=== PATIENT | female | born 1990 | race African-American/Black ===

== ENCOUNTER 2018-01-05 09:03 | Outpatient (CLI) | payer BC ==
--- NOTE | 2018-01-05 11:41 | ULT ---
FOCUSED ULTRASOUND OF THE RIGHT NECK: 01/05/2018 HISTORY: Palpable mass on the right side of the neck. Swelling. COMPARISON: None. TECHNIQUE: Multiplanar katz-scale sonographic imaging of the right neck in the area of interest provided. FINDINGS: No mass lesion or fluid collection is seen. IMPRESSION: Unremarkable focused ultrasound of the neck on the right. Given the history of a palpable mass, a CT examination of the neck with IV contrast is advised. POS: [facility]
== END 2018-01-05 09:04 | disposition home or self-care (01) ==
LOC: MADULT 09:03
PROVIDERS: ATTEND Family Medicine
DX: R22.1 Localized swelling, mass and lump, neck (principal)
CPT/HCPCS: 76536

== ENCOUNTER 2020-12-18 09:53 | Outpatient (CLI) | payer BC | END 2020-12-18 09:54 | disposition home or self-care (01) | LOC: MADRAD 09:53 | PROVIDERS: ATTEND Family Medicine | DX: R10.2 Pelvic and perineal pain (principal) | CPT/HCPCS: 76856 ==

== ENCOUNTER 2021-09-14 10:48 | Emergency (ER) | payer BC ==
[2021-09-14] MEDS ORDERED: Ibuprofen 800 MG TAB ONE (11:41)
[2021-09-14] MEDS ORDERED: Sodium Chloride 0.9% 1,000 ML ONE (11:41)
[2021-09-14] MEDS ORDERED: Acetaminophen 500 MG TAB ONE (11:41)
[2021-09-14 11:43] LABS: #Basophils 0.1 thou/uL (0.0-0.2); #Lymphocytes 0.4 thou/uL (1.20-3.40); #Monocytes 0.4 thou/uL (0.11-0.59); #Neutrophils 2.1 thou/uL (1.40-6.50); %Basophils 2.4 % (0.0-1.0); %Eosinophils 0.3 % (0.0-10.0); %Lymphocytes 13.7 % (21.0-51.0); %Monocytes 12.3 % (0.0-10.0); %Neutrophils 71.3 % (42.0-75.0); Mean Corpuscular HGB CONC 32.2 g/dL (32.0-36.0); Mean Corpuscular Hemoglobin 27.8 pg (27.0-31.0); Mean Corpuscular Volume 86.1 fL (78.0-98.0); Mean Platelet Volume 6.4 fL (7.4-10.4); Platelet Count 196 thou/uL (130-400); RBC Distribution Width 12.7 % (11.5-14.5); Red Blood Cell (RBC) Count 3.98 mill/uL (4.20-5.40); White Blood Cell (WBC) Count 2.9 thou/uL (4.8-10.8)
[2021-09-14 12:01] LABS: ALT (SGPT) 35 U/L (8-55); AST (SGOT) 33 U/L (5-34); Alkaline Phosphatase 91 U/L (40-110); Anion Gap 10 mmol/L (10-20); BUN (Urea Nitrogen) 10 mg/dL (7.0-18.7); Bilirubin, Total 0.2 mg/dL (0.2-1.2); Calc. Creatinine Clearance 0 mL/min (70-130); Calcium 9.5 mg/dL (7.8-10.44); Carbon Dioxide 25 mmol/L (22-29); Chloride 105 mmol/L (98-107); Globulin 3.3 g/dL (2.4-3.5); Glucose 97 mg/dL (70-105); Potassium 3.5 mmol/L (3.5-5.1); Protein, Total 7.3 g/dL (6.0-8.3); Sodium 136 mmol/L (136-145)
[2021-09-14 12:45] LABS: BHCG - Serum Negative (NEGATIVE); Pregs Control Background? CLEAR/WHITE (CLR/WHITE); Pregs Control Bar Appear? YES (CONTROL BAR)
[2021-09-14 14:36] LABS: Bilirubin Negative (Negative); Blood, Urine Trace (Negative); Glucose, Urine (Dipstick) Negative (Negative); Ketone, Urine 15 mg/dL (Negative); Leukocyte Negative (Negative); Nitrite Negative (Negative); Protein, Urine (Dipstick) 30 mg/dL (Neg-Trace); Specific Gravity, Urine 1.025 (1.005-1.030); Urobilinogen 0.2 mg/dL (Less than 2); pH, Urine 6.5 (5.0-9.0)
[2021-09-14 14:37] LABS: Clarity Hazy (Clear)
[2021-09-14 14:43] LABS: Bacteria/HPF 1+ HPF (None Seen); RBC/HPF 0-3 HPF (0-3); Squamous Epithelial 0-3 HPF (0-3); WBC/HPF 0-3 HPF (0-3)
[2021-09-14 16:42] LABS: #Lymphocytes 0.6 thou/uL (1.20-3.40); #Monocytes 0.4 thou/uL (0.11-0.59); #Neutrophils 1.7 thou/uL (1.40-6.50); %Basophils 1.2 % (0.0-1.0); %Eosinophils 0.2 % (0.0-10.0); %Neutrophils 61.7 % (42.0-75.0); Hemoglobin 10.5 g/dL (12.0-16.0); Mean Corpuscular HGB CONC 31.8 g/dL (32.0-36.0); Mean Corpuscular Hemoglobin 27.9 pg (27.0-31.0); Mean Corpuscular Volume 87.6 fL (78.0-98.0); Platelet Count 190 thou/uL (130-400); RBC Distribution Width 12.8 % (11.5-14.5); Red Blood Cell (RBC) Count 3.77 mill/uL (4.20-5.40); White Blood Cell (WBC) Count 2.7 thou/uL (4.8-10.8)
[2021-09-15 17:28] LABS: SARS-CoV-2 PCR by NAA DETECTED (NotDetected)
== END 2021-09-14 17:40 | disposition home or self-care (01) ==
LOC: MADERS 10:48
DX: U07.1 COVID-19 (principal); E86.0 Dehydration; D72.810 Lymphocytopenia
CPT/HCPCS: 36415; 80053; 81003; 81015; 83605; 84703; 85025; 87040; 87086; 87804; 99283; J7050; U0003; U0005

== ENCOUNTER 2024-07-29 15:14 | Emergency (ER) | payer BC ==
[2024-07-29] MEDS ORDERED: Acetaminophen 500 MG TAB ONE (16:23)
[2024-07-29 16:47] LABS: #Basophils 0.1 thou/uL (0.0-0.2); #Lymphocytes 2.6 thou/uL (1.20-3.40); #Monocytes 0.5 thou/uL (0.11-0.59); %Basophils 1.1 % (0.0-1.0); %Eosinophils 0.2 % (0.0-10.0); %Lymphocytes 42.2 % (21.0-51.0); %Monocytes 7.7 % (0.0-10.0); %Neutrophils 48.8 % (42.0-75.0); Hematocrit 38.7 % (36.0-47.0); Hemoglobin 12.3 g/dL (12.0-16.0); Mean Corpuscular HGB CONC 31.8 g/dL (32.0-36.0); Mean Platelet Volume 6.8 fL (7.4-10.4); Platelet Count 338 10x3/uL (130-400); RBC Distribution Width 12.6 % (11.5-14.5); White Blood Cell (WBC) Count 6.1 10x3/uL (4.8-10.8)
[2024-07-29 16:55] LABS: Pregnancy Test - Urine (BHCG) Negative (Negative); Pregu Control Background? CLEAR/WHITE (CLR/WHITE); Pregu Control Bar Appear? YES (CONTROL BAR); Specific Gravity 1.029 (1.002-1.036)
[2024-07-29] MEDS ORDERED: Aspirin Chewable 81 MG TAB ONE (16:55)
[2024-07-29 17:01] LABS: ALT (SGPT) 23 U/L (8-55); AST (SGOT) 21 U/L (5-34); Albumin 4.3 g/dL (3.5-5.0); Alkaline Phosphatase 88 U/L (40-110); Anion Gap 17 mmol/L (10-20); BUN (Urea Nitrogen) 14 mg/dL (7.0-18.7); Bilirubin, Total 0.7 mg/dL (0.2-1.2); Calc. Creatinine Clearance 0 mL/min (70-130); Calcium 9.7 mg/dL (7.8-10.44); Carbon Dioxide 23 mmol/L (22-29); Chloride 104 mmol/L (98-107); Estimated GFR 75; Globulin 3.8 g/dL (2.4-3.5); Glucose 88 mg/dL (70-105); Potassium 3.4 mmol/L (3.5-5.1); Protein, Total 8.1 g/dL (6.0-8.3); Sodium 141 mmol/L (136-145)
[2024-07-29 17:02] LABS: Troponin I Less than 0.010 ng/mL (< 0.028)
[2024-07-29] MEDS ORDERED: Potassium Chloride 20 MEQ TAB ONE (17:13)
== END 2024-07-29 17:27 | disposition home or self-care (01) ==
LOC: MADERS 15:14
DX: M79.602 Pain in left arm (principal); E87.6 Hypokalemia
CPT/HCPCS: 36415; 71046; 80053; 81025; 84484; 85025; 93005